=== PATIENT | female | born 1985 | race Caucasian/White ===

== ENCOUNTER 2019-09-09 23:00 | Emergency (ER) | payer MEDICAID, OTHER ==
[~2019-09-09] VITALS: Ht 162.6 cm; Wt 73.6 kg
[2019-09-09 23:24] VITALS: BP 153/90
--- NOTE | 2019-09-10 00:07 | NUR ---
PT IN BATHROOM FOR 20 MINUTES TRYING TO PROVIDE URINE SAMPLE. PT STATED SHE MISSED THE URINE CUP AND ALL URINE IS IN TOILET. PT GIVEN ICE WATER UPON REQUEST SO SHE CAN TRY AGAIN
--- NOTE | 2019-09-10 01:03 | NUR ---
Blood sample sent to lab. Ultrasound in room
--- NOTE | 2019-09-10 01:11 | NUR ---
[facility] [place]
[2019-09-10] MEDS ORDERED: ACET-2119 PO (01:33)
== END 2019-09-10 01:40 | disposition home or self-care (01) ==
LOC: ER 23:01
DX: O9A.212 Injury, poisoning and certain other consequences of external causes complicating pregnancy, second trimester (principal); S00.83XA Contusion of other part of head, initial encounter; S00.531A Contusion of lip, initial encounter; S00.12XA Contusion of left eyelid and periocular area, initial encounter; S00.33XA Contusion of nose, initial encounter; O99.322 Drug use complicating pregnancy, second trimester; F15.90 Other stimulant use, unspecified, uncomplicated; Z88.1 Allergy status to other antibiotic agents; Z79.899 Other long term (current) drug therapy; Z3A.20 20 weeks gestation of pregnancy; Y04.8XXA Assault by other bodily force, initial encounter; Y93.89 Activity, other specified; Y92.89 Other specified places as the place of occurrence of the external cause; Y99.8 Other external cause status
CPT/HCPCS: 36415; 76805; 84702; 99284

== ENCOUNTER 2019-09-10 09:43 | Emergency (ER) | payer MEDICAID, OTHER ==
[~2019-09-10] VITALS: Ht 172.7 cm; Wt 90.0 kg
[~2019-09-10 09:43] MED LIST: ACET-2119 PO
[2019-09-10 09:55] VITALS: BP 136/98
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
--- NOTE | 2019-09-10 10:57 | NUR ---
Patient is seen ambulating self to the bathroom. No distress observed.
[2019-09-10 11:54] LABS: URINE HCG POSITIVE (NEG)
--- NOTE | 2019-09-10 11:55 | NUR ---
PT BACK FROM CT
--- NOTE | 2019-09-10 11:56 | NUR ---
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
[2019-09-10 12:06] LABS: URINE AMPHETAMINE SCREEN POSITIVE (Neg); URINE BARBITUATE SCREEN NEGATIVE (Neg); URINE BENZODIAZEPINES SCREEN NEGATIVE (Neg); URINE CANNABINOID SCREEN NEGATIVE (Neg); URINE COCAINE SCREEN NEGATIVE (Neg); URINE METHADONE SCREEN NEGATIVE (Neg); URINE OPIATE SCREEN NEGATIVE (Neg); URINE PHENCYCLIDINE SCREEN NEGATIVE (Neg)
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
[2019-09-10 12:23] LABS: BASOPHILS # (AUTO) 0.1 X10'3 (0-0.2); BASOPHILS % (AUTO) 0.6 % (0-1); EOSINOPHILS # (AUTO) 0.1 X10'3 (0-0.9); EOSINOPHILS % (AUTO) 0.7 % (0-6); HEMATOCRIT 36.2 % (35.0-45.0); HEMOGLOBIN 12.4 g/dl (12.0-16.0); LYMPHOCYTES # (AUTO) 1.5 X10'3 (1.1-4.8); LYMPHOCYTES % (AUTO) 14.3 % (21-51); MEAN CORPUSCULAR HGB CONC 34.4 g/dL (33.0-36.5); MEAN CORPUSCULAR VOLUME 93.2 FL (78-98); MEAN PLATELET VOLUME 8.9 FL (7.4-10.4); MONOCYTES # (AUTO) 0.7 X10'3 (0-0.9); MONOCYTES % (AUTO) 6.1 % (2-12); NEUTROPHILS # (AUTO) 8.5 X10'3 (1.8-7.7); NEUTROPHILS % (AUTO) 78.3 % (42-75); PLATELET COUNT 274 X10'3 (140-440); RED BLOOD COUNT 3.88 X10'6 (4.20-5.60); RED CELL DISTRIBUTION WIDTH 13.3 % (11.5-14.5); WHITE BLOOD COUNT 10.8 X10'3 (4.5-11.0)
[2019-09-10 12:25] LABS: CLARITY,URINE TURBID (Clear); COLOR,URINE YELLOW (Yellow); GLUCOSE, URINE NEGATIVE (Neg); KETONES,URINE 40 mg/dl (Neg); LEUKOCYTE ESTERASE ,URINE SMALL (Neg); NITRITES, URINE NEGATIVE (Neg); OCCULT BLOOD,URINE NEGATIVE (Neg); PROTEIN,URINE NEGATIVE (Neg); UROBILINOGEN,URINE 0.2 E.U/dL (0.2-1.0)
[2019-09-10 12:32] LABS: UA COLLECTION TYPE CLN CATCH MIDSTREAM
[2019-09-10 12:34] LABS: SQUAMOUS EPITHELIAL CELL,UR MANY /LPF (FEW)
[2019-09-10 12:36] LABS: BACTERIA,URINE 4+ /HPF (Neg); MUCUS STRANDS NONE SEEN /LPF (Neg); RBC,URINE 0-2 /HPF (0-2); WBC,URINE 0-4 /HPF (0-4)
[2019-09-10 12:37] LABS: PARTIAL THROMBOPLASTIN TIME 28 SECONDS (22-32)
[2019-09-10 12:41] LABS: ALANINE AMINOTRANSFERASE 25 U/L (12-78); ALBUMIN 2.8 G/DL (3.4-5.0); ALBUMIN/GLOBULIN RATIO 0.8 (1.1-1.5); ALKALINE PHOSPHATASE 61 IU/L (46-116); ANION GAP 8 (8-16); ASPARTATE AMINO TRANSFERASE 22 U/L (10-37); BILIRUBIN,TOTAL 0.5 MG/DL (0.1-1.0); BLOOD UREA NITROGEN 10 MG/DL (7-18); BUN/CREATININE RATIO 20.8 (6.6-38.0); CALCIUM 8.3 MG/DL (8.5-10.1); CHLORIDE 106 MMOL/L (99-107); CREATININE 0.48 MG/DL (0.40-0.90); GLUCOSE 104 MG/DL (70-104); POTASSIUM 3.2 MMOL/L (3.5-5.1); SODIUM 139 MMOL/L (135-145); TOTAL CARBON DIOXIDE 25.3 MMOL/L (24-32); TOTAL PROTEIN 6.1 G/DL (6.4-8.2); eGFR > 90 ML/MIN
[2019-09-10 12:51] LABS: ETHANOL < 0.010 GM/DL (0.0-0.010)
[2019-09-10 12:58] LABS: ACETAMINOPHEN < 2.0 UG/ML (10-30)
[2019-09-10] MEDS ORDERED: potassium Cl 20 mEq SR tablet PO ONE (13:05)
--- NOTE | 2019-09-10 13:52 | NUR ---
Pt is laying in bed eating lunch. She reports that her lips feel tight and chapped and requests lip balm. This request was accomodated. She requested the results of her head CT but thhe results are pending. Explained this to patient and informed her I would let her know once the report is read. She verbalized understanding.
--- NOTE | 2019-09-10 14:27 | NUR ---
PATIENT IS UP AT NURSES STATION BECOMING VERY AGITATED. STATES SHE WANTS HER PHONE AND WANTS TO LEAVE UNIT. SECURITY CALLED TO ASSIST. DR. BARBA HERE TO EVAL PATIENT AND DE-ESCALATE ISSUE.
--- NOTE | 2019-09-10 17:18 | NUR ---
Pt discharged from the unit ambulating self to the care of her sister, Eduarda. All personal items were inventoried and in patient's possession at time of discharge. No distress observed. Pt denies SI, HI, A/VH. Pt is a non-smoker, so declined smoking cessation information. All paperwork was reviewed, qiestions were answered and patient verbalized understanding.
== END 2019-09-10 17:20 | disposition home or self-care (01) ==
LOC: ER 09:44
DX: S00.83XA Contusion of other part of head, initial encounter (principal); S00.12XA Contusion of left eyelid and periocular area, initial encounter; S00.11XA Contusion of right eyelid and periocular area, initial encounter; F15.10 Other stimulant abuse, uncomplicated; M25.561 Pain in right knee; Z59.0 Homelessness; Z88.0 Allergy status to penicillin; Z79.899 Other long term (current) drug therapy; Y04.2XXA Assault by strike against or bumped into by another person, initial encounter; Y93.89 Activity, other specified; Y92.89 Other specified places as the place of occurrence of the external cause; Y99.8 Other external cause status
CPT/HCPCS: 36415; 70450; 70486; 80053; 80305; 80320; 80329; 81001; 81025; 84443; 85025; 85610; 85730; 99284

== ENCOUNTER 2019-11-08 13:07 | Emergency (ER) | payer MEDICAID ==
[~2019-11-08] VITALS: Ht 162.6 cm; Wt 93.2 kg
[2019-11-08 13:32] VITALS: BP 132/87
--- NOTE | 2019-11-08 15:35 | NUR ---
vascular at bedside
== END 2019-11-08 16:42 | disposition home or self-care (01) ==
LOC: ER 13:07
DX: M79.605 Pain in left leg (principal); R06.02 Shortness of breath; R21 Rash and other nonspecific skin eruption; F15.90 Other stimulant use, unspecified, uncomplicated; Z59.0 Homelessness; Z88.0 Allergy status to penicillin
CPT/HCPCS: 93971; 99284

== ENCOUNTER 2021-03-31 06:35 | Emergency (ER) | payer MEDICAID ==
[~2021-03-31] VITALS: Ht 162.6 cm; Wt 111.4 kg
[2021-03-31 07:02] VITALS: BP 142/122
[2021-03-31] MEDS ORDERED: DOXYCYCLINE 100MG CAPSULE PO STA (07:16)
[2021-03-31] MEDS ORDERED: diphenhydrAMINE 25mg capsule PO ONE (07:20)
[2021-03-31] MEDS ORDERED: loratadine 10mg tablet PO SCH (08:00)
[2021-03-31] MEDS ORDERED: DIPH25CA83 PO (10:31)
[2021-03-31] MEDS ORDERED: DOXY100C2 PO (10:31)
[2021-03-31] MEDS ORDERED: LORA10CA PO (10:31)
== END 2021-03-31 10:46 | disposition home or self-care (01) ==
LOC: ER 06:36
DX: J32.9 Chronic sinusitis, unspecified (principal); Z20.822 Contact with and (suspected) exposure to COVID-19; B34.9 Viral infection, unspecified; R09.89 Other specified symptoms and signs involving the circulatory and respiratory systems; R04.2 Hemoptysis; F15.90 Other stimulant use, unspecified, uncomplicated; Z59.0 Homelessness; Z88.1 Allergy status to other antibiotic agents; Z79.2 Long term (current) use of antibiotics; Z79.899 Other long term (current) drug therapy
CPT/HCPCS: 70486; 87635; 99284; C9803; Q0163

== ENCOUNTER 2021-10-15 02:17 | Emergency (ER) | payer MEDICAID ==
[~2021-10-15] VITALS: Ht 162.6 cm; Wt 90.9 kg
[~2021-10-15 02:17] MED LIST changes: -ACET-2119 PO; +DIPH25CA83 PO; +LORA10CA PO
--- NOTE | 2021-10-15 04:20 | NUR ---
I called [facility] to make sure pt's has a case number logged. They have two case numbers from patient from yesterday. Case number 1: [id number]. Case number 2: [id number].
[2021-10-15 05:01] LABS: URINE HCG NEGATIVE (NEG)
[2021-10-15 05:26] VITALS: BP 124/93
== END 2021-10-15 05:28 | disposition home or self-care (01) ==
LOC: ER 02:18
DX: R07.81 Pleurodynia (principal); R51.9 Headache, unspecified; F15.90 Other stimulant use, unspecified, uncomplicated; Z59.00 Homelessness unspecified; Z88.1 Allergy status to other antibiotic agents; Z79.899 Other long term (current) drug therapy
CPT/HCPCS: 71045; 81025; 99284

== ENCOUNTER 2021-10-26 11:04 | Emergency (ER) | payer MEDICAID ==
[~2021-10-26] VITALS: Ht 162.6 cm; Wt 92.0 kg
[2021-10-26 11:43] VITALS: BP 160/101
== END 2021-10-26 11:56 | disposition home or self-care (01) ==
LOC: ER 11:04
DX: R07.81 Pleurodynia (principal); Y04.8XXA Assault by other bodily force, initial encounter; Y93.89 Activity, other specified; Y92.89 Other specified places as the place of occurrence of the external cause; Y99.8 Other external cause status; F17.210 Nicotine dependence, cigarettes, uncomplicated; Z59.00 Homelessness unspecified; Z88.0 Allergy status to penicillin; Z79.899 Other long term (current) drug therapy
CPT/HCPCS: 99283

== ENCOUNTER 2022-02-06 00:59 | Emergency (ER) | payer MEDICAID ==
[~2022-02-06] VITALS: Ht 160 cm; Wt 81.8 kg
[2022-02-06 01:25] VITALS: BP 137/85
[2022-02-06] MEDS ORDERED: diphenhydrAMINE 50 mg/ml inj IM ONE (03:05)
[2022-02-06] MEDS ORDERED: haloperidol lactate 5mg/ml inj IM ONE (03:05)
--- NOTE | 2022-02-06 03:51 | NUR ---
PT ELOPED FROM ED ROOM 9 AFTER REFUSING BLOOD DRAW AND GIVING URINE. CALLED [facility] AND GAVE A REPORT. CASE #[id number].
== END 2022-02-06 03:54 | disposition left against medical advice (07) ==
LOC: ER 01:00
DX: R41.0 Disorientation, unspecified (principal); F15.10 Other stimulant abuse, uncomplicated; Z59.00 Homelessness unspecified; Z88.1 Allergy status to other antibiotic agents; Z79.899 Other long term (current) drug therapy
CPT/HCPCS: 99285